=== PATIENT | female | born 1995 ===

== ENCOUNTER 2017-10-17 07:07 | Inpatient (IN) | payer MEDICAID ==
[2017-10-17] MEDS ORDERED: Sodium Chloride 0.9% 1,000 ML IV STA ×2 (07:35→10:46)
--- NOTE | 2017-10-17 07:41 | ED PDOC ---
HPI:Nausea, Vomiting, Diarrhea Time Seen by Provider: 10/17/17 07:16 Chief Complaint (Nursing): Weakness/Neurological Deficit Chief Complaint (Provider): Weakness, Nausea, Vomiting History Per: Patient History/Exam Limitations: no limitations Onset/Duration Of Symptoms: Days (x3) Current Symptoms Are (Timing): Still Present Additional Complaint(s): Jordy Carr is a 21 year old female with a past medical history of Anemia ( unknown cause) and asthma presenting to the ED for an evaluation of generalized weakness, nausea and a few episodes of vomiting occurring for 3 days prior to arrival. The patient denies diarrhea, bloody stools, dark stools, fever, cough, or shortness of breath. PMD: TBD Past Medical History Reviewed: Historical Data, Nursing Documentation, Vital Signs Vital Signs: Last Vital Signs Temp 98.5 F 10/17/17 07:24 Pulse 109 H 10/17/17 07:24 Resp 18 10/17/17 07:24 BP Pulse Ox 98 10/17/17 07:24 - Medical History PMH: Anemia, Asthma - Family History Family History: States: No Known Family Hx - Social History Current smoker - smoking cessation education provided: No Ex-Smoker (has not smoked in the last 12 months): No Alcohol: None Drugs: Cannabis - Immunization History Hx Tetanus Toxoid Vaccination: No Hx Influenza Vaccination: No Hx Pneumococcal Vaccination: No - Home Medications Home Medications: Ambulatory Orders Medication Instructions Recorded Albuterol HFA [Ventolin HFA 90 2 puff IH PRN PRN 03/26/16 mcg/actuation (8 g)] - Allergies Allergies/Adverse Reactions: Allergies Allergy/AdvReac Type Severity Reaction Status Date / Time No Known Allergies Allergy Verified 10/17/17 07:24 Review of Systems ROS Statement: Except As Marked, All Systems Reviewed And Found Negative Constitutional: Negative for: Fever Respiratory: Negative for: Cough, Shortness of Breath Gastrointestinal: Positive for: Nausea, Vomiting. Negative for: Diarrhea, Melena, Hematochezia Neurological: Positive for: Weakness (generalized) Physical Exam - Reviewed Nursing Documentation Reviewed: Yes Vital Signs Reviewed: Yes - Physical Exam Appears: Positive for: Non-toxic, No Acute Distress Head Exam: Positive for: ATRAUMATIC, NORMOCEPHALIC Skin: Positive for: Warm, Dry, Pallor Eye Exam: Positive for: Normal appearance, EOMI ENT: Positive for: Normal ENT Inspection Neck: Positive for: Normal, Painless ROM Cardiovascular/Chest: Positive for: Regular Rate, Rhythm, Chest Non Tender Respiratory: Positive for: Normal Breath Sounds. Negative for: Respiratory Distress Gastrointestinal/Abdominal: Positive for: Normal Exam, Soft. Negative for: Tenderness Back: Positive for: Normal Inspection Extremity: Positive for: Normal ROM. Negative for: Deformity Neurologic/Psych: Positive for: Alert, Oriented (x3). Negative for: Motor/ Sensory Deficits - Laboratory Results Result Diagrams: 10/17/17 07:48 10/17/17 07:48 - ECG O2 Sat by Pulse Oximetry: 98 (RA) Pulse Ox Interpretation: Normal Medical Decision Making Medical Decision Making: Time: 07:16 Impression: Weakness, Nausea, Vomiting Plan: * ED EKG * CMP * CBC (with differential) * NS 1,000 ml IV 200 mls/hr * Reevaluation Scribe Attestation: Documented by January Ramirez, acting as a scribe for Willie Gilliland MD. Provider Scribe Attestation: All medical record entries made by the Scribe were at my direction and personally dictated by me. I have reviewed the chart and agree that the record accurately reflects my personal performance of the history, physical exam, medical decision making, and the department course for this patient. I have also personally directed, reviewed, and agree with the discharge instructions and disposition. Disposition - Clinical Impression Clinical Impression: Pneumonia, Sepsis - Patient ED Disposition Is Patient to be Admitted: Yes - Disposition Disposition Time: 10:42 Condition: FAIR Forms: [employer] (Syriac) - Pt Status Changed To: Hospital Disposition Of: Inpatient - Admit Certification Admit to Inpatient:: After my assessment, the patient will require hospitalization for at least two midnights. This is because of the severity of symptoms shown, intensity of services needed, and/or the medical risk in this patient being treated as an outpatient. - POA Present On Arrival: None
[2017-10-17 07:55] LABS: BASO # 0.1 K/uL (0.0-0.2); BASO % 0.7 % (0.0-2.0); LYMPH # 0.5 K/uL (1.0-4.3); LYMPH % 2.5 % (20.0-40.0); MEAN CELL VOLUME 72.4 fl (81.0-99.0); MEAN CORPUSCULAR HEMOGLOBIN 22.5 pg (27.0-31.0); MEAN PLATELET VOLUME 8.9 fl (7.2-11.7); MONO # 1.4 K/uL (0.0-0.8); MONO % 6.9 % (0.0-10.0); NEUT % 89.9 % (50.0-75.0); PLATELET COUNT 283 K/uL (130-400); RED CELL DISTRIBUTION WIDTH 17.2 % (11.5-14.5)
[2017-10-17 08:16] LABS: VENOUS BLOOD GAS BASE EXCESS 0.4 mmol/L (0.0-2.0); VENOUS BLOOD GAS PCO2 37 mmHg (40-60); VENOUS BLOOD PH 7.43 (7.32-7.43)
[2017-10-17 08:19] LABS: ALB/GLOB RATIO 1.3 (1.0-2.1); ALKALINE PHOSPHATASE 52 U/L (38-126); ALT/SGPT 30 U/L (9-52); AST/SGOT 20 U/L (14-36); BILIRUBIN,TOTAL 1.4 mg/dl (0.2-1.3); BLOOD UREA NITROGEN 12 mg/dl (7-17); CALCIUM 8.9 mg/dL (8.4-10.2); CARBON DIOXIDE 23 mmol/L (22-30); CHLORIDE 104 mmol/L (98-107); GFR AFRICAN-AMERICAN > 60; GLUCOSE,RANDOM 108 mg/dL (65-105); SODIUM 140 mmol/l (132-148)
[2017-10-17 08:22] LABS: POTASSIUM 3.5 MMOL/L (3.6-5.0)
--- NOTE | 2017-10-17 08:41 | CARD ---
APPROVED REPORT EKG Measurement Heart [id number] <Conclusion> Sinus tachycardia Otherwise normal ECG
[2017-10-17] MEDS ORDERED: cefTRIAXone IV 1 gm in Dextros 50 ML IVPB STA (09:43)
[2017-10-17] MEDS ORDERED: cefTRIAXone IV 1 gm in Dextros 50 ML IVPB ONE (10:12)
--- NOTE | 2017-10-17 10:33 | RAD ---
HISTORY: weakness COMPARISON: No prior study available for comparison TECHNIQUE: Chest PA and lateral FINDINGS: LUNGS: Patchy right upper lobe infiltrate consistent with pneumonia. PLEURA: No significant pleural effusion identified. No pneumothorax apparent. CARDIOVASCULAR: Normal. OSSEOUS STRUCTURES: No significant abnormalities. VISUALIZED UPPER ABDOMEN: Normal. OTHER FINDINGS: None. IMPRESSION: Right upper lobe infiltrate.
[2017-10-17 10:38] LABS: NEUTROPHIL 86 % (42-75); TOTAL CELLS COUNTED 100
--- NOTE | 2017-10-17 12:06 | CP.PCM.HP ---
History of Present Illness - History of Present Illness History of Present Illness: CC: Generalized Weakness and Cough History of Present Illness: A 21 year old female with a past medical history of Anemia (unknown cause) and asthma presenting to the ED for an evaluation of generalized weakness, nausea and a few episodes of vomiting occurring for 3 days prior to arrival. The patient denies diarrhea, bloody stools, dark stools, fever or shortness of breath. Present on Admission - Present on Admission Any Indicators Present on Admission: Yes History of DVT/PE: No History of Uncontrolled Diabetes: No Urinary Catheter: No Decubitus Ulcer Present: No Review of Systems - Review of Systems All systems: reviewed and no additional remarkable complaints except - Cardiovascular Cardiovascular: As Per HPI - Respiratory Respiratory: As Per HPI Past Patient History - Infectious Disease Hx of Infectious Diseases: None - Past Medical History & Family History Past Medical History?: Yes Past Family History: Reviewed and not pertinent - Past Social History Smoking Status: Never Smoked Alcohol: None Drugs: Cannabis - CARDIAC Hx Cardiac Disorders: No - PULMONARY Hx Respiratory Disorders: Yes - NEUROLOGICAL Hx Neurological Disorder: No - HEENT Hx HEENT Problems: No - RENAL Hx Chronic Kidney Disease: No - ENDOCRINE/METABOLIC Hx Endocrine Disorders: No - HEMATOLOGICAL/ONCOLOGICAL Hx Blood Disorders: Yes - INTEGUMENTARY Hx Dermatological Problems: No - MUSCULOSKELETAL/RHEUMATOLOGICAL Hx Musculoskeletal Disorders: No - GENITOURINARY/GYNECOLOGICAL Hx Genitourinary Disorders: No - PSYCHIATRIC Hx Psychophysiologic Disorder: No - SURGICAL HISTORY Hx Surgeries: No - ANESTHESIA Hx Anesthesia: No Meds Allergies/Adverse Reactions: Allergies Allergy/AdvReac Type Severity Reaction Status Date / Time No Known Allergies Allergy Verified 10/17/17 07:24 Physical Exam - Constitutional Appears: Well, No Acute Distress - Head Exam Head Exam: ATRAUMATIC, NORMAL INSPECTION, NORMOCEPHALIC - Eye Exam Eye Exam: EOMI, Normal appearance, PERRL Pupil Exam: NORMAL ACCOMODATION, PERRL - ENT Exam ENT Exam: Mucous Membranes Moist, Normal Exam - Neck Exam Neck exam: Positive for: Full Rom, Normal Inspection - Respiratory Exam Respiratory Exam: Clear to Auscultation Bilateral, Rales, NORMAL BREATHING PATTERN - Cardiovascular Exam Cardiovascular Exam: Tachycardia, REGULAR RHYTHM, +S1, +S2 - GI/Abdominal Exam GI & Abdominal Exam: Normal Bowel Sounds, Soft. absent: Tenderness - Extremities Exam Extremities exam: Positive for: full ROM, normal capillary refill, normal inspection - Back Exam Back exam: NORMAL INSPECTION - Neurological Exam Neurological exam: Alert, CN II-XII Intact, Normal Gait, Oriented x3, Reflexes Normal - Psychiatric Exam Psychiatric exam: Normal Affect, Normal Mood - Skin Skin Exam: Dry, Intact, Normal Color, Warm Results - Vital Signs Recent Vital Signs: Last Vital Signs Temp 98.5 F 10/17/17 07:24 Pulse 107 H 10/17/17 11:58 Resp 18 10/17/17 11:58 BP 115/59 L 10/17/17 11:58 Pulse Ox 100 10/17/17 10:53 - Labs Result Diagrams: 10/19/17 06:30 10/19/17 06:30 Labs: Laboratory Results - last 24 hr 10/17/17 10/17/17 10/17/17 07:48 07:48 08:04 WBC 20.0 H RBC 4.69 Hgb 10.5 L Hct 34.0 MCV 72.4 L MCH 22.5 L MCHC 31.0 L RDW 17.2 H Plt Count 283 MPV 8.9 Neut % (Auto) 89.9 H Lymph % (Auto) 2.5 L [place] % (Auto) 6.9 Eos % (Auto) 0.0 Baso % (Auto) 0.7 Neut # 18.0 H Lymph # 0.5 L [place] # 1.4 H Eos # 0.0 Baso # 0.1 Neutrophils % (Manual) 86 H Band Neutrophils % 4 H Lymphocytes % (Manual) 3 L Monocytes % (Manual) 7 Platelet Estimate Normal Hypochromasia (manual) Slight Poikilocytosis (manual Slight Anisocytosis (manual) Moderate Microcytosis (manual) Moderate Ovalocytes Slight pO2 31 VBG pH 7.43 VBG pCO2 37 L VBG HCO3 24.4 VBG Total CO2 25.7 VBG O2 Sat (Calc) 61.7 VBG Base Excess 0.4 VBG Potassium 3.3 L Glucose 115 H Lactate 1.3 FiO2 21.0 Sodium 140 137.0 Potassium 3.5 L Chloride 104 105.0 Carbon Dioxide 23 Anion Gap 17 BUN 12 Creatinine 0.8 Est GFR ( Amer) > 60 Est GFR (Non-Af Amer) > 60 Random Glucose 108 H Calcium 8.9 Total Bilirubin 1.4 H AST 20 ALT 30 Alkaline Phosphatase 52 Total Protein 8.0 Albumin 4.5 Globulin 3.4 Albumin/Globulin Ratio 1.3 Venous Blood Potassium 3.3 L - Imaging and Cardiology Chest x-ray Status: Report reviewed by me Additional comment: IMPRESSION: Right upper lobe infiltrate. Assessment & Plan (1) Sepsis Assessment and Plan: Severe Sepsis Pneumonia Leukocytosis Hypotension-Improving IVF IV Rocephin/Zithromax Blood Cultures Repeat CBC with diff and BMP Status: Acute Priority: High (2) Asthma Status: Chronic Priority: Low
[2017-10-17] MEDS ORDERED: Iohexol 240 (50 ml) PO ONE (12:36)
[2017-10-17] MEDS: Sodium Chloride 0.9% 1,000 ML IV SCH ×7 (13:28→21:30)
[2017-10-17] MEDS ORDERED: Pneumococcal 23-Valent Vaccine IM ONE (14:28)
[2017-10-17] MEDS ORDERED: Iohexol 300 100 ML IJ ONE (14:42)
--- NOTE | 2017-10-17 15:49 | CT ---
PROCEDURE: CT scan abdomen and pelvis dated 10/17/2017 HISTORY: Abdominal pain COMPARISON: None. TECHNIQUE: Contiguous axial images of the abdomen and pelvis performed following oral and intravenous injection of approximately 95 cc Omnipaque 300 contrast material. Coronal and Sagittal reformats generated. This CT exam was performed using one or more of the following dose reduction techniques: Automated exposure control, adjustment of the mA and/or kV according to patient size, and/or use of iterative reconstruction technique. Radiation dose: Total exam DLP = 417.46 mGy-cm. FINDINGS: LOWER THORAX: Minor passive type atelectasis both posterior sulci. . Lung chaney are otherwise clear. No evidence effusion or basilar pneumothorax. Tiny hiatal hernia. Heart size within range of normal. LIVER: Liver is enlarged measuring nearly 20 cm in CC dimension. No obvious hepatic mass collection or calcification. . There appears to be some mild periportal edema. Portal and splenic veins are opacified. GALLBLADDER AND BILE DUCTS: Gallbladder is physiologically distended. No evidence of intraluminal gallbladder calculi. Probable volume averaging of of pericholecystic mesenteric fat. Tiny amount of pericholecystic fluid less likely though not completely excluded. . PANCREAS: Unremarkable. No mass. No ductal dilatation. SPLEEN: Spleen exhibits normal size and attenuation pattern without mass collection or calcification. The the ADRENALS: Unremarkable. KIDNEYS AND URETERS: Unremarkable. No stone or hydronephrosis. BLADDER: The urinary bladder is incompletely distended which may account for slight thick-walled appearance. Correlation with urinalysis suggested. No REPRODUCTIVE: Uterus appears unremarkable. Small left adnexal cyst measuring approximately 19 x 13 mm. There may also be a tiny amount of free fluid in the pelvis. APPENDIX: What is felt to represent a normal but short appendix of best seen on axial image number [id number]. BOWEL: Evaluation of the bowel is somewhat limited due to incomplete opacification. The stomach is incompletely distended which presumably accounts for slight thick-walled appearance. Visualized loops of small bowel exhibit normal contour and caliber. No evidence acute mechanical small bowel obstruction. Stool and air seen throughout the large bowel. No evidence of abnormal mural wall thickening. PERITONEUM: Unremarkable. No fluid collection. No free air. There is a tiny fat containing umbilical hernia. LYMPH NODES: Unremarkable. No enlarged lymph nodes. VASCULATURE: Unremarkable. No aortic aneurysm. BONES: No fracture or destructive lesion. OTHER FINDINGS: None. IMPRESSION: Small left adnexal cyst with questionable small amount of free fluid in the pelvis. . No evidence of cholelithiasis. Suspect minimal periportal edema.
[2017-10-17 16:28] LABS: RBC URINE < 1 /hpf (0-3); URINE BACTERIA RARE (<OCC); URINE BILIRUBIN NEGATIVE (NEGATIVE); URINE BLOOD NEGATIVE (NEGATIVE); URINE COLOR COLORLESS (YELLOW); URINE GLUCOSE (UA) NEG (Normal); URINE KETONE TRACE mg/dL (NEGATIVE); URINE LEUKOCYTE ESTERASE NEG Leu/uL (Negative); URINE PROTEIN NEGATIVE (NEGATIVE); URINE UROBILINOGEN 0.2-1.0 mg/dL (0.2-1.0); WBC URINE 1 /hpf (0-5)
[2017-10-17] MEDS: Albuterol-Ipratrop 3 mg / 0.5 (3 ml) UD INH SCH (19:20)
[2017-10-17] MEDS: Promethazine/Cod 6.25mg-10mg/5ml Syr UD PO PRN (21:11)
[2017-10-18] MEDS: Sodium Chloride 0.9% 1,000 ML IV SCH ×3 (03:00→21:52)
[2017-10-18] MEDS: Promethazine/Cod 6.25mg-10mg/5ml Syr UD PO PRN ×3 (05:21→21:55)
[2017-10-18 07:39] LABS: HEMATOCRIT 27.9 % (34.0-47.0); MEAN CELL VOLUME 73.2 fl (81.0-99.0); MEAN CORPUSCULAR HEMOGLOBIN 22.1 pg (27.0-31.0); MEAN CORPUSCULAR HGB CONC 30.3 g/dL (33.0-37.0); RED CELL DISTRIBUTION WIDTH 17.8 % (11.5-14.5); WHITE BLOOD COUNT 22.9 K/uL (4.8-10.8)
[2017-10-18 07:43] LABS: BLOOD UREA NITROGEN 8 mg/dl (7-17); CALCIUM 7.3 mg/dL (8.4-10.2); CARBON DIOXIDE 24 mmol/L (22-30); CHLORIDE 111 mmol/L (98-107); GFR AFRICAN-AMERICAN > 60; GLUCOSE,RANDOM 78 mg/dL (65-105); POTASSIUM 3.4 MMOL/L (3.6-5.0); SODIUM 142 mmol/l (132-148)
[2017-10-18] MEDS: Albuterol-Ipratrop 3 mg / 0.5 (3 ml) UD INH SCH ×3 (07:49→19:23)
--- NOTE | 2017-10-18 09:10 | CARD ---
APPROVED REPORT EKG Measurement Heart [id number] [place] 154P43 [id number] <Conclusion> Sinus tachycardia Nonspecific ST abnormality Abnormal ECG
[2017-10-18] MEDS: Azithromycin 500 MG in Sodium Chloride 0.9% 250 ML IVPB SCH (09:42)
[2017-10-18] MEDS: Docusate-Senna 50 mg-8.6 mg Tab PO SCH (21:52)
--- NOTE | 2017-10-19 00:44 | CP.PCM.PN ---
Subjective - Date & Time of Evaluation Date of Evaluation: 10/18/17 Time of Evaluation: 18:30 - Subjective Subjective: Seen and examined at the bed side. Continue to complain abdominal pain. CT abdomen/Pelvis shows no acute findings. Deinies fever or chills. +Constipation Objective - Vital Signs/Intake and Output Vital Signs (last 24 hours): Temp Pulse Resp BP Pulse Ox 97.7 F 85 18 100/63 97 10/18/17 23:58 10/18/17 23:58 10/18/17 23:58 10/18/17 23:58 10/18/17 23:58 Intake and Output: 10/18/17 10/19/17 18:59 06:59 Intake Total 3125 Balance 3125 - Medications Medications: Current Medications Acetaminophen (Tylenol 325mg Tab) 650 mg PO Q6 PRN PRN Reason: Headache Last Admin: 10/18/17 13:53 Dose: 650 mg Acetaminophen (Tylenol 325mg Tab) 650 mg PO Q6 PRN PRN Reason: Fever >100.4 F Albuterol/Ipratropium (Duoneb 3 Mg/0.5 Mg (3 Ml) Ud) 3 ml INH RTID [facility] Last Admin: 10/18/17 19:23 Dose: 3 ml Ceftriaxone Sodium 1 gm/ (Sodium Chloride) 100 mls @ 100 mls/hr IVPB DAILY [facility] PRN Reason: Protocol Last Admin: 10/18/17 09:42 Dose: 100 mls/hr Azithromycin 500 mg/ Sodium (Chloride) 250 mls @ 250 mls/hr IVPB DAILY [facility] PRN Reason: Protocol Last Admin: 10/18/17 09:42 Dose: 250 mls/hr Sodium Chloride (Sodium Chloride 0.9%) 1,000 mls @ 125 mls/hr IV .Q8H [facility] Stop: 10/19/17 16:39 Last Admin: 10/18/17 21:52 Dose: 125 mls/hr Ketorolac Tromethamine (Toradol) 15 mg IVP Q6 PRN PRN Reason: Pain, severe (8-10) Last Admin: 10/18/17 16:35 Dose: 15 mg Promethazine HCl/Codeine (Phenergan/Codeine Oral Syrup) 5 ml PO Q6 PRN PRN Reason: Cough Last Admin: 10/18/17 21:55 Dose: 5 ml Senna/Docusate Sodium (Senokot S 50 Mg-8.6 Mg) 2 tab PO HS [facility] Last Admin: 10/18/17 21:52 Dose: 2 tab - Labs Labs: 10/18/17 05:30 10/18/17 05:30 - Constitutional Appears: Well, No Acute Distress - Head Exam Head Exam: ATRAUMATIC, NORMAL INSPECTION, NORMOCEPHALIC - Eye Exam Eye Exam: EOMI, Normal appearance, PERRL Pupil Exam: NORMAL ACCOMODATION, PERRL - ENT Exam ENT Exam: Mucous Membranes Dry, Normal Exam - Neck Exam Neck Exam: Full ROM, Normal Inspection. absent: Lymphadenopathy - Respiratory Exam Respiratory Exam: Decreased Breath Sounds, Clear to Ausculation Bilateral, Rales , NORMAL BREATHING PATTERN - Cardiovascular Exam Cardiovascular Exam: REGULAR RHYTHM, +S1, +S2. absent: Murmur - GI/Abdominal Exam GI & Abdominal Exam: Soft, Normal Bowel Sounds. absent: Tenderness - Extremities Exam Extremities Exam: Full ROM, Normal Capillary Refill, Normal Inspection. absent : Joint Swelling, Pedal Edema - Back Exam Back Exam: Full ROM, NORMAL INSPECTION - Neurological Exam Neurological Exam: Alert, Awake, CN II-XII Intact, Normal Gait, Oriented x3 - Psychiatric Exam Psychiatric exam: Normal Affect, Normal Mood - Skin Skin Exam: Dry, Intact, Normal Color, Warm Assessment and Plan (1) Sepsis Assessment & Plan: Severe Sepsis Pneumonia Leukocytosis Hypotension-Improving IVF IV Rocephin/Zithromax Blood Cultures Repeat CBC with diff and BMP Status: Acute Priority: High (2) Asthma Alb MDI Status: Acute
[2017-10-19] MEDS ORDERED: Bisacodyl 5mg EC Tab PO ONE (01:42)
[2017-10-19] MEDS: Sodium Chloride 0.9% 1,000 ML IV SCH ×2 (01:54→19:53)
[2017-10-19] MEDS: Promethazine/Cod 6.25mg-10mg/5ml Syr UD PO PRN (03:06)
[2017-10-19 07:48] LABS: BASO % 0.3 % (0.0-2.0); EOS # 0.2 K/uL (0.0-0.7); EOS % 2.2 % (0.0-4.0); HEMATOCRIT 27.5 % (34.0-47.0); LYMPH % 11.8 % (20.0-40.0); MEAN CELL VOLUME 72.8 fl (81.0-99.0); MEAN CORPUSCULAR HEMOGLOBIN 22.6 pg (27.0-31.0); MEAN CORPUSCULAR HGB CONC 31.1 g/dL (33.0-37.0); MEAN PLATELET VOLUME 9.6 fl (7.2-11.7); MONO # 0.6 K/uL (0.0-0.8); MONO % 6.6 % (0.0-10.0); NEUT # 6.7 K/uL (1.8-7.0); NEUT % 79.1 % (50.0-75.0); RED CELL DISTRIBUTION WIDTH 18.1 % (11.5-14.5); WHITE BLOOD COUNT 8.5 K/uL (4.8-10.8)
[2017-10-19 08:05] LABS: ALB/GLOB RATIO 0.9 (1.0-2.1); ALKALINE PHOSPHATASE 83 U/L (38-126); ALT/SGPT 365 U/L (9-52); AST/SGOT 516 U/L (14-36); BILIRUBIN,TOTAL 0.8 mg/dl (0.2-1.3); BLOOD UREA NITROGEN 9 mg/dl (7-17); CALCIUM 7.8 mg/dL (8.4-10.2); CARBON DIOXIDE 24 mmol/L (22-30); CHLORIDE 112 mmol/L (98-107); GFR AFRICAN-AMERICAN > 60; GLUCOSE,RANDOM 91 mg/dL (65-105); MAGNESIUM 1.8 MG/DL (1.6-2.3); POTASSIUM 3.5 MMOL/L (3.6-5.0); SODIUM 142 mmol/l (132-148); TOTAL PROTEIN 5.6 G/DL (6.3-8.2)
[2017-10-19] MEDS: Albuterol-Ipratrop 3 mg / 0.5 (3 ml) UD INH SCH ×3 (08:07→19:29)
[2017-10-19] MEDS: Azithromycin 500 MG in Sodium Chloride 0.9% 250 ML IVPB SCH (09:50)
--- NOTE | 2017-10-19 14:13 | CP.PCM.PN ---
Subjective - Date & Time of Evaluation Date of Evaluation: 10/19/17 Time of Evaluation: 14:10 Objective - Vital Signs/Intake and Output Vital Signs (last 24 hours): Temp Pulse Resp BP Pulse Ox 98.3 F 73 20 110/76 98 10/19/17 12:15 10/19/17 13:00 10/19/17 12:15 10/19/17 12:15 10/19/17 12:15 - Medications Medications: Current Medications Acetaminophen (Tylenol 325mg Tab) 650 mg PO Q6 PRN PRN Reason: Headache Last Admin: 10/18/17 13:53 Dose: 650 mg Acetaminophen (Tylenol 325mg Tab) 650 mg PO Q6 PRN PRN Reason: Fever >100.4 F Albuterol/Ipratropium (Duoneb 3 Mg/0.5 Mg (3 Ml) Ud) 3 ml INH RTID [facility] Last Admin: 10/19/17 13:56 Dose: 3 ml Ceftriaxone Sodium 1 gm/ (Sodium Chloride) 100 mls @ 100 mls/hr IVPB DAILY [facility] PRN Reason: Protocol Last Admin: 10/19/17 08:37 Dose: 100 mls/hr Azithromycin 500 mg/ Sodium (Chloride) 250 mls @ 250 mls/hr IVPB DAILY [facility] PRN Reason: Protocol Last Admin: 10/19/17 09:50 Dose: 250 mls/hr Ketorolac Tromethamine (Toradol) 15 mg IVP Q6 PRN PRN Reason: Pain, severe (8-10) Last Admin: 10/19/17 03:09 Dose: 15 mg Pantoprazole Sodium (Protonix Inj) 40 mg IVP DAILY [facility] Promethazine HCl/Codeine (Phenergan/Codeine Oral Syrup) 5 ml PO Q6 PRN PRN Reason: Cough Last Admin: 10/19/17 03:06 Dose: 5 ml Senna/Docusate Sodium (Senokot S 50 Mg-8.6 Mg) 2 tab PO HS [facility] Last Admin: 10/18/17 21:52 Dose: 2 tab Sucralfate (Carafate Oral Susp) 1 gm PO QID [facility] - Labs Labs: 10/19/17 06:30 10/19/17 06:30 Assessment and Plan (1) Sepsis Assessment & Plan: Severe Sepsis Pneumonia Leukocytosis Hypotension-Improving IVF IV Rocephin/Zithromax Blood Cultures Repeat CBC with diff and BMP Status: Acute Priority: High (2) Asthma Alb MDI Status: Chronic
[2017-10-19] MEDS: Sucralfate 1 gm/10 ml Oral Susp UD PO SCH ×4 (15:24→21:56)
[2017-10-19] MEDS: Docusate-Senna 50 mg-8.6 mg Tab PO SCH (21:56)
[2017-10-20] MEDS: Promethazine/Cod 6.25mg-10mg/5ml Syr UD PO PRN (03:15)
[2017-10-20] MEDS: Albuterol-Ipratrop 3 mg / 0.5 (3 ml) UD INH SCH ×3 (07:28→19:26)
--- NOTE | 2017-10-20 10:37 | RAD ---
HISTORY: fu pna COMPARISON: Chest radiographs 10/17/2017. TECHNIQUE: Chest PA and lateral FINDINGS: LUNGS: Interval patchy infiltrate is increased at the right upper lobe with remaining lung chaney clear. PLEURA: No significant pleural effusion identified. No pneumothorax apparent. CARDIOVASCULAR: Normal. OSSEOUS STRUCTURES: No significant abnormalities. VISUALIZED UPPER ABDOMEN: Normal. OTHER FINDINGS: None. IMPRESSION: Mild increase in patchy infiltrate right upper lobe. Continued clinical and radiographic monitor advised.
[2017-10-20 10:57] LABS: BILIRUBIN,TOTAL 2.2 mg/dl (0.2-1.3); TOTAL PROTEIN 6.4 G/DL (6.3-8.2)
[2017-10-20 11:46] LABS: IRON 89 ug/dL (37-170)
[2017-10-20] MEDS: Sucralfate 1 gm/10 ml Oral Susp UD PO SCH ×4 (13:26→21:09)
[2017-10-20] MEDS: Azithromycin 500 MG in Sodium Chloride 0.9% 250 ML IVPB SCH (13:35)
--- NOTE | 2017-10-20 15:04 | US ---
HISTORY: Elevated d LFT COMPARISON: None. TECHNIQUE: Sonographic evaluation of the right upper quadrant of the abdomen. FINDINGS: LIVER: Liver is upper limits of normal spleen size measuring nearly 18 cm in CC dimension. Liver demonstrates smooth contour and normal echotexture. No obvious hepatic mass or collection seen on images presented. Portal vein demonstrates hepatopetal flow GALLBLADDER: Gallbladder is physiologically distended. Gallbladder wall is thickened at approximately 4.4 mm which may be due to incomplete distention however inflammatory process not to be considered. There is also a small amount of pericholecystic fluid -ascites. No definitive intraluminal gallbladder calculi. COMMON BILE DUCT: CBD measures approximately 4.8 mm. No stones. No dilatation. PANCREAS: Unremarkable as visualized. No mass. No ductal dilatation. RIGHT KIDNEY: Right kidney measures approximate 12.2 x 6.5 x 4.7 cm in length. Normal echogenicity. No calculus, mass, or hydronephrosis. AORTA: No aneurysmal dilatation. IVC: Unremarkable. OTHER FINDINGS: Note made of a small right-sided pleural effusion IMPRESSION: Mild gallbladder wall thickening with small amount of pericholecystic fluid -ascites however no intraluminal gallbladder calculi identified. . Small pleural effusion. Liver is upper limits of normal in size.
[2017-10-20 17:23] LABS: FOLATE 12.6 ng/mL
[2017-10-20] MEDS: Docusate-Senna 50 mg-8.6 mg Tab PO SCH (21:09)
--- NOTE | 2017-10-21 01:09 | CP.PCM.PN ---
Subjective - Date & Time of Evaluation Date of Evaluation: 10/20/17 Time of Evaluation: 16:00 Objective - Vital Signs/Intake and Output Vital Signs (last 24 hours): Temp Pulse Resp BP Pulse Ox 97.9 F 66 18 112/75 97 10/20/17 23:39 10/20/17 23:39 10/20/17 23:39 10/20/17 23:39 10/20/17 23:39 Intake and Output: 10/20/17 10/21/17 18:59 06:59 Intake Total 1350 Balance 1350 - Medications Medications: Current Medications Acetaminophen (Tylenol 325mg Tab) 650 mg PO Q6 PRN PRN Reason: Headache Last Admin: 10/19/17 15:23 Dose: 650 mg Acetaminophen (Tylenol 325mg Tab) 650 mg PO Q6 PRN PRN Reason: Fever >100.4 F Albuterol/Ipratropium (Duoneb 3 Mg/0.5 Mg (3 Ml) Ud) 3 ml INH RTID [facility] Last Admin: 10/20/17 19:26 Dose: 3 ml Ceftriaxone Sodium 1 gm/ (Sodium Chloride) 100 mls @ 100 mls/hr IVPB DAILY [facility] PRN Reason: Protocol Last Admin: 10/20/17 13:34 Dose: 100 mls/hr Azithromycin 500 mg/ Sodium (Chloride) 250 mls @ 250 mls/hr IVPB DAILY [facility] PRN Reason: Protocol Last Admin: 10/20/17 13:35 Dose: 250 mls/hr Ketorolac Tromethamine (Toradol) 15 mg IVP Q6 PRN PRN Reason: Pain, severe (8-10) Last Admin: 10/20/17 22:04 Dose: 15 mg Ondansetron HCl (Zofran Inj) 4 mg IVP Q6 PRN PRN Reason: Nausea/Vomiting Last Admin: 10/20/17 03:15 Dose: 4 mg Pantoprazole Sodium (Protonix Inj) 40 mg IVP DAILY [facility] Last Admin: 10/20/17 10:55 Dose: 40 mg Promethazine HCl/Codeine (Phenergan/Codeine Oral Syrup) 5 ml PO Q6 PRN PRN Reason: Cough Last Admin: 10/20/17 03:15 Dose: 5 ml Senna/Docusate Sodium (Senokot S 50 Mg-8.6 Mg) 2 tab PO [facility] Last Admin: 10/20/17 21:09 Dose: 2 tab Sucralfate (Carafate Oral Susp) 1 gm PO QID [facility] Last Admin: 10/20/17 21:09 Dose: 1 gm - Labs Labs: 10/19/17 06:30 10/19/17 06:30 Assessment and Plan (1) Sepsis Status: Chronic
[2017-10-21 05:47] LABS: ALKALINE PHOSPHATASE 113 U/L (38-126); ALT/SGPT 259 U/L (9-52); AST/SGOT 97 U/L (14-36); BILIRUBIN,TOTAL 1.2 mg/dl (0.2-1.3); BLOOD UREA NITROGEN 7 mg/dl (7-17); CALCIUM 8.3 mg/dL (8.4-10.2); CARBON DIOXIDE 25 mmol/L (22-30); CHLORIDE 110 mmol/L (98-107); GFR AFRICAN-AMERICAN > 60; GLUCOSE,RANDOM 73 mg/dL (65-105); POTASSIUM 3.4 MMOL/L (3.6-5.0); SODIUM 142 mmol/l (132-148); TOTAL PROTEIN 6.3 G/DL (6.3-8.2)
[2017-10-21] MEDS: Albuterol-Ipratrop 3 mg / 0.5 (3 ml) UD INH SCH ×2 (07:51→13:30)
[2017-10-21] MEDS ORDERED: Sodium Chloride 3% for Inhalation 4 ML VIAL.NEB IH PRN (09:45)
[2017-10-21] MEDS ORDERED: Potassium Chloride 20 mEq/15 ml LIQ UD PO STA (09:48)
--- NOTE | 2017-10-21 10:11 | CP.PCM.CON ---
History of Present Illness - History of Present Illness History of Present Illness: 21 yo female presented with nausea and vomiting and infiltrates on CXR Found to have increased LFT's HIDA in progress PMH asthma, anemia Review of Systems - Review of Systems All systems: reviewed and no additional remarkable complaints except - Constitutional Constitutional: As Per HPI - EENT Eyes: absent: As Per HPI, Blind Spots, Blurred Vision, Change in Vision, Decreased Night Vision, Diplopia, Discharge, Dry Eye, Exophthalmos, Floaters, Irritation, Itchy Eyes, Loss of Peripheral Vision, Pain, Photophobia, Requires Corrective Lenses, Sees Flashes, Spots in Vision, Tunnel Vision, Other Visual Disturbances, Loss of Vision, Other Ears: absent: As Per HPI, Decreased Hearing, Ear Discharge, Ear Pain, Tinnitus, Abnormal Hearing, Disequilibrium, Dizziness, Other Nose/Mouth/Throat: absent: As Per HPI, Epistaxis, Nasal Congestion, Nasal Discharge, Nasal Obstruction, Nasal Trauma, Nose Pain, Post Nasal Drip, Sinus Pain, Sinus Pressure, Bleeding Gums, Change in Voice, Dental Pain, Dry Mouth, Dysphagia, Halitosis, Hoarsness, Lip Swelling, Mouth Lesions, Mouth Pain, Odynophagia, Sore Throat, Throat Swelling, Tongue Swelling, Facial Pain, Neck Pain, Neck Mass, Other - Breasts Breasts: absent: As Per HPI, Change in Shape, Mass, Pain, Nipple Discharge, Nipple Inversion, Skin Changes, Swelling, Other - Cardiovascular Cardiovascular: absent: As Per HPI, Acrocyanosis, Chest Pain, Chest Pain at Rest , Chest Pain with Activity, Claudication, Diaphoresis, Dyspnea, Dyspnea on Exertion, Edema, Irregular Heart Rhythm, Pain Radiating to Arm/Neck/Jaw, Leg Edema, Leg Ulcers, Lightheadedness, Orthopnea, Palpitations, Paroxysmal Nocturnal Dyspnea, Pedal Edema, Radiating Pain, Rapid Heart Rate, Slow Heart Rate, Syncope, Other - Respiratory Respiratory: As Per HPI - Gastrointestinal Gastrointestinal: As Per HPI - Genitourinary Genitourinary: absent: As Per HPI, Change in Urinary Stream, Difficulty Urinating, Dysuria, Flank Pain, Hematuria, Pyuria, Nocturia, Urinary Incontinence, Urinary Frequency, Urinary Hesitance, Urinary Urgency, Voiding Freq/Small Amts, Freq UTI, Hx Renal/Bladder Calculi, Hx /Renal Surgery, Bladder Distension, Other - Reproductive: Female Reproductive:Female: absent: As Per HPI, Amenorrhea, Amenorrhea/ Control, Currently Menstual, Cycle <21 Days, Cycle >35 Days, Cycle Variable, Menses 1-7 Days, Menses >/= 8 Days, Menses Variable, Cycle > 4 Weeks Between, No Menses for 6 Months, Heavy Menses, Light Menses, Normal Menses, Spotting Between Cycles , S/P Hysterectomy, Menopausal, Post Menopausal, Premenarche, Abnormal Vaginal Bleeding, Dysmenorrhea, Dyspareunia, Genital Lesions, Genital Pruritis, Pelvic Pain, Prolapse Symptoms, Sexual Dysfunction, Vaginal Discharge, Vaginal Dryness , Vaginal Odor, Vaginal Pruritis, Other - Menstruation Menstruation: absent: As Per HPI, Amenorrhea, Amenorrhea/ Control, Currently Menstual, Cycle <21 Days, Cycle >35 Days, Cycle Variable, Menses 1-7 Days, Menses >/= 8 Days, Menses Variable, Cycle > 4 Weeks Between, No Menses for 6 Months, Heavy Menses, Light Menses, Normal Menses, Spotting Between Cycles , S/P Hysterectomy, Menopausal, Post Menopausal, Premenarche, Abnormal Vaginal Bleeding, Dysmenorrhea, Other - Musculoskeletal Musculoskeletal: absent: As Per HPI, Abnormal Gait, Arthralgias, Atrophy, Back Pain, Deformity, Joint Swelling, Limited Range of Motion, Loss of Height, Muscle Cramps, Muscle Weakness, Myalgias, Neck Pain, Numbness, Radiating Pain into Limb, Stiffness, Tingling, Other - Integumentary Integumentary: absent: As Per HPI, Acne, Alopecia, Bleeding Lesions, Change in Hair, Change in Nails, Change in Pigmentation, Changing Lesions, Dry Skin, Erythema, Furuncle, Hirsutism, Lesions, New Lesions, Non-Healing Lesions, Photosensitivity, Pruritus, Rash, Skin Pain, Skin Ulcer, Sores, Striae, Swelling , Unusual Bruising, Wounds, Jaundice, Other - Neurological Neurological: absent: As Per HPI, Abnormal Gait, Abnormal Hearing, Abnormal Movements, Abnormal Speech, Behavioral Changes, Burning Sensations, Confusion, Convulsions, Disequilibrium, Dizziness, Numbness, Focal Weakness, Frequent Falls , Headaches, Lack of Coordination, Loss of Vision, Memory Loss, Paresthesias, Radicular Pain, Restless Legs, Sensory Deficit, Syncope, Tingling, Tremor, Vertigo, Weakness, Other Visual Disturbances, Other - Psychiatric Psychiatric: absent: As Per HPI, Abnormal Sleep Pattern, Anhedonia, Anxiety, Auditory Hallucinations, Behavioral Changes, Change in Appetite, Change in Libido, Confusion, Depression, Difficulty Concentrating, Hallucinations, Homicidal Ideation, Hopelessness, Irritability, Memory Loss, Mood Swings, Panic Attacks, Paranoia, Suicidal Ideation, Visual Hallucinations, Tactile Hallucinations, Other - Endocrine Endocrine: absent: As Per HPI, Change in Body Appearance, Change in Libido, Cold Intolorance, Deepening of Voice, Excessive Sweating, Fatigue, Flushing, Heat Intolorance, Increase in Ring/Shoe/Hat Size, Palpitations, Polydipsia, Polyphagia, Polyuria, Other - Hematologic/Lymphatic Hematologic: absent: As Per HPI, Easy Bleeding, Easy Bruising, Lymphadenopathy, Other Past Patient History - Infectious Disease Hx of Infectious Diseases: None - Past Medical History & Family History Past Medical History?: Yes Past Family History: Reviewed and not pertinent - Past Social History Smoking Status: Never Smoked Alcohol: None Drugs: Cannabis - CARDIAC Hx Cardiac Disorders: No - PULMONARY Hx Respiratory Disorders: Yes - NEUROLOGICAL Hx Neurological Disorder: No - HEENT Hx HEENT Problems: No - RENAL Hx Chronic Kidney Disease: No - ENDOCRINE/METABOLIC Hx Endocrine Disorders: No - HEMATOLOGICAL/ONCOLOGICAL Hx Blood Disorders: Yes - INTEGUMENTARY Hx Dermatological Problems: No - MUSCULOSKELETAL/RHEUMATOLOGICAL Hx Musculoskeletal Disorders: No - GASTROINTESTINAL Hx Gastrointestinal Disorders: No - GENITOURINARY/GYNECOLOGICAL Hx Genitourinary Disorders: No - PSYCHIATRIC Hx Psychophysiologic Disorder: No - SURGICAL HISTORY Hx Surgeries: No - ANESTHESIA Hx Anesthesia: No Meds Allergies/Adverse Reactions: Allergies Allergy/AdvReac Type Severity Reaction Status Date / Time No Known Allergies Allergy Verified 10/17/17 07:24 - Medications Medications: Current Medications Acetaminophen (Tylenol 325mg Tab) 650 mg PO Q6 PRN PRN Reason: Headache Last Admin: 10/19/17 15:23 Dose: 650 mg Acetaminophen (Tylenol 325mg Tab) 650 mg PO Q6 PRN PRN Reason: Fever >100.4 F Albuterol/Ipratropium (Duoneb 3 Mg/0.5 Mg (3 Ml) Ud) 3 ml INH RTID [facility] Last Admin: 10/21/17 07:51 Dose: 3 ml Ceftriaxone Sodium 1 gm/ (Sodium Chloride) 100 mls @ 100 mls/hr IVPB DAILY [facility] PRN Reason: Protocol Last Admin: 10/20/17 13:34 Dose: 100 mls/hr Azithromycin 500 mg/ Sodium (Chloride) 250 mls @ 250 mls/hr IVPB DAILY [facility] PRN Reason: Protocol Last Admin: 10/20/17 13:35 Dose: 250 mls/hr Ketorolac Tromethamine (Toradol) 15 mg IVP Q6 PRN PRN Reason: Pain, severe (8-10) Last Admin: 10/21/17 03:56 Dose: 15 mg Ondansetron HCl (Zofran Inj) 4 mg IVP Q6 PRN PRN Reason: Nausea/Vomiting Last Admin: 10/20/17 03:15 Dose: 4 mg Pantoprazole Sodium (Protonix Inj) 40 mg IVP DAILY [facility] Last Admin: 10/20/17 10:55 Dose: 40 mg Promethazine HCl/Codeine (Phenergan/Codeine Oral Syrup) 5 ml PO Q6 PRN PRN Reason: Cough Last Admin: 10/20/17 03:15 Dose: 5 ml Senna/Docusate Sodium (Senokot S 50 Mg-8.6 Mg) 2 tab PO HS [facility] Last Admin: 10/20/17 21:09 Dose: 2 tab Sucralfate (Carafate Oral Susp) 1 gm PO QID [facility] Last Admin: 10/20/17 21:09 Dose: 1 gm Physical Exam - Constitutional Appears: Non-toxic, Chronically Ill - Head Exam Head Exam: NORMOCEPHALIC - Eye Exam Eye Exam: PERRL. absent: Scleral icterus - ENT Exam ENT Exam: Mucous Membranes Dry - Neck Exam Neck exam: Negative for: Lymphadenopathy - Respiratory Exam Respiratory Exam: Decreased Breath Sounds, Clear to Auscultation Bilateral - Cardiovascular Exam Cardiovascular Exam: REGULAR RHYTHM, +S1, +S2 - GI/Abdominal Exam GI & Abdominal Exam: Diminished Bowel Sounds, Soft. absent: Tenderness - Rectal Exam Rectal Exam: Deferred - Exam Exam: NORMAL INSPECTION - Extremities Exam Extremities exam: Positive for: pedal pulses present. Negative for: calf tenderness, pedal edema, tenderness - Back Exam Back exam: absent: CVA tenderness (L), CVA tenderness (R) - Neurological Exam Neurological exam: Alert, CN II-XII Intact, Oriented x3, Reflexes Normal - Psychiatric Exam Psychiatric exam: Normal Mood - Skin Skin Exam: Dry Results - Vital Signs Recent Vital Signs: Last Vital Signs Temp 98.2 F 10/21/17 08:05 Pulse 59 L 10/21/17 08:05 Resp 18 10/21/17 08:05 BP 120/80 10/21/17 08:05 Pulse Ox 95 10/21/17 08:05 - Labs Result Diagrams: 10/19/17 06:30 10/21/17 04:20 Labs: Laboratory Results - last 24 hr 10/20/17 10/20/17 10/20/17 10:00 11:26 16:51 Retic Count Sodium Potassium Chloride Carbon Dioxide Anion Gap BUN Creatinine Est GFR ( Amer) Est GFR (Non-Af Amer) Random Glucose Calcium Iron 89 TIBC 366 % Saturation 24 Ferritin 26.2 Total Bilirubin 2.2 H Direct Bilirubin 1.0 H AST 220 H D ALT 373 H Alkaline Phosphatase 117 Total Protein 6.4 Albumin 3.3 L D Globulin 3.1 Albumin/Globulin Ratio 1.0 Vitamin B12 773 Folate 12.6 Hepatitis A IgM Ab Negative Hep Bs Antigen Negative Hep B Core IgM Ab Negative Hepatitis C Antibody Negative 10/21/17 10/21/17 04:20 04:20 Retic Count 1.3 Sodium 142 Potassium 3.4 L Chloride 110 H Carbon Dioxide 25 Anion Gap 10 BUN 7 Creatinine 0.5 L Est GFR ( Amer) > 60 Est GFR (Non-Af Amer) > 60 Random Glucose 73 Calcium 8.3 L Iron TIBC % Saturation Ferritin Total Bilirubin 1.2 Direct Bilirubin AST 97 H D ALT 259 H D Alkaline Phosphatase 113 Total Protein 6.3 Albumin 3.1 L Globulin 3.1 Albumin/Globulin Ratio 1.0 Vitamin B12 Folate Hepatitis A IgM Ab Hep Bs Antigen Hep B Core IgM Ab Hepatitis C Antibody Assessment & Plan (1) Pneumonia Status: Acute (2) Sepsis Status: Chronic Priority: High (3) Exacerbation of asthma Status: Acute - Assessment and Plan (Free Text) Assessment: Await HIDA Blood cuultures neg thus far consider adding Zosyn and removing Rocephin [neumonia could be viral, atypical, Legionella , aspiration type as well as bacterial
[2017-10-21] MEDS: Sucralfate 1 gm/10 ml Oral Susp UD PO SCH ×3 (13:05→16:39)
[2017-10-21] MEDS: Azithromycin 500 MG in Sodium Chloride 0.9% 250 ML IVPB SCH (13:22)
--- NOTE | 2017-10-21 13:57 | NM ---
PROCEDURE: Nuclear Medicine Hepatobiliary Scan HISTORY: Abdominal Pain, elevated Liver Enzymes COMPARISON: None available. TECHNIQUE: 5.0 mCi of technetium 99m Mebrofenin was administered intravenously. Planar images of the abdomen were obtained at 5 min intervals to 60 mins. Delayed images were also obtained. FINDINGS: LIVER: Timely and homogenous uptake. COMMON BILE DUCT: identified at 10 mins. GALLBLADDER: identified at 10 mins. SMALL BOWEL: Identified at 5-10 mins. IMPRESSION: Normal Hepatobiliary Scan. The cystic duct is patent. No nuclear evidence of common bile duct obstruction.
[2017-10-21 15:43] VITALS: BP 112/69; PULSE 69; RESP 20; TEMP 98.3; O2SAT 96
--- NOTE | 2017-10-21 15:54 | CP.PCM.CON ---
History of Present Illness - History of Present Illness History of Present Illness: General surgery consult note for Dr. Silvino Olivares, PGY-1 Pt S & E at bedside. 21F w/PMH sig for asthma consulted for abdominal pain x 5 days. Pt reports sudden onset of epigastric abdominal pain, constant, non radiating, severe, but variable in intensity -worsened by eating, but not associated with fatty or spicy food intake. Admits to emesis x 1 on 10/16/12, nauseas, fevers, chills and constipation. Admitted to hospital for pneumonia, admits to cough. Denies diarrhea, sick contacts, ever having before. PMH: Asthma PSH: Denies All: NKDA SH: Denies ETOH or tobacco use, rare MJ use PMD: Denies Review of Systems - Review of Systems All systems: reviewed and no additional remarkable complaints except - Constitutional Constitutional: Chills, Fever - Cardiovascular Cardiovascular: Chest Pain - Respiratory Respiratory: Cough - Gastrointestinal Gastrointestinal: Abdominal Pain, Change in Bowel Habits, Constipation, Nausea, Vomiting. absent: Diarrhea, Hematemesis - Reproductive: Female Reproductive:Female: absent: Abnormal Vaginal Bleeding, Vaginal Discharge - Musculoskeletal Musculoskeletal: absent: Back Pain - Integumentary Integumentary: absent: Rash - Psychiatric Psychiatric: Change in Appetite Past Patient History - Infectious Disease Hx of Infectious Diseases: None - Past Medical History & Family History Past Medical History?: Yes Past Family History: Reviewed and not pertinent - Past Social History Smoking Status: Never Smoked Alcohol: None Drugs: Cannabis - CARDIAC Hx Cardiac Disorders: No - PULMONARY Hx Respiratory Disorders: Yes - NEUROLOGICAL Hx Neurological Disorder: No - HEENT Hx HEENT Problems: No - RENAL Hx Chronic Kidney Disease: No - ENDOCRINE/METABOLIC Hx Endocrine Disorders: No - HEMATOLOGICAL/ONCOLOGICAL Hx Blood Disorders: Yes - INTEGUMENTARY Hx Dermatological Problems: No - MUSCULOSKELETAL/RHEUMATOLOGICAL Hx Musculoskeletal Disorders: No - GASTROINTESTINAL Hx Gastrointestinal Disorders: No - GENITOURINARY/GYNECOLOGICAL Hx Genitourinary Disorders: No - PSYCHIATRIC Hx Psychophysiologic Disorder: No - SURGICAL HISTORY Hx Surgeries: No - ANESTHESIA Hx Anesthesia: No Meds Allergies/Adverse Reactions: Allergies Allergy/AdvReac Type Severity Reaction Status Date / Time No Known Allergies Allergy Verified 10/17/17 07:24 - Medications Medications: Current Medications Acetaminophen (Tylenol 325mg Tab) 650 mg PO Q6 PRN PRN Reason: Headache Last Admin: 10/19/17 15:23 Dose: 650 mg Acetaminophen (Tylenol 325mg Tab) 650 mg PO Q6 PRN PRN Reason: Fever >100.4 F Albuterol/Ipratropium (Duoneb 3 Mg/0.5 Mg (3 Ml) Ud) 3 ml INH RTID [facility] Last Admin: 10/21/17 13:30 Dose: 3 ml Ceftriaxone Sodium 1 gm/ (Sodium Chloride) 100 mls @ 100 mls/hr IVPB DAILY [facility] PRN Reason: Protocol Last Admin: 10/21/17 13:23 Dose: 100 mls/hr Azithromycin 500 mg/ Sodium (Chloride) 250 mls @ 250 mls/hr IVPB DAILY [facility] PRN Reason: Protocol Last Admin: 10/21/17 13:22 Dose: 250 mls/hr Ketorolac Tromethamine (Toradol) 15 mg IVP Q6 PRN PRN Reason: Pain, severe (8-10) Last Admin: 10/21/17 13:29 Dose: 15 mg Ondansetron HCl (Zofran Inj) 4 mg IVP Q6 PRN PRN Reason: Nausea/Vomiting Last Admin: 10/20/17 03:15 Dose: 4 mg Pantoprazole Sodium (Protonix Inj) 40 mg IVP DAILY [facility] Last Admin: 10/20/17 10:55 Dose: 40 mg Promethazine HCl/Codeine (Phenergan/Codeine Oral Syrup) 5 ml PO Q6 PRN PRN Reason: Cough Last Admin: 10/20/17 03:15 Dose: 5 ml Senna/Docusate Sodium (Senokot S 50 Mg-8.6 Mg) 2 tab PO HS [facility] Last Admin: 10/20/17 21:09 Dose: 2 tab Sucralfate (Carafate Oral Susp) 1 gm PO QID [facility] Last Admin: 10/21/17 13:18 Dose: 1 gm Physical Exam - Constitutional Appears: Non-toxic, No Acute Distress - Head Exam Head Exam: ATRAUMATIC, NORMAL INSPECTION, NORMOCEPHALIC - Eye Exam Eye Exam: EOMI, Normal appearance - ENT Exam ENT Exam: Mucous Membranes Moist, Normal Exam - Neck Exam Neck exam: Positive for: Full Rom, Normal Inspection - Respiratory Exam Respiratory Exam: Clear to Auscultation Bilateral, NORMAL BREATHING PATTERN - Cardiovascular Exam Cardiovascular Exam: REGULAR RHYTHM, +S1, +S2 - GI/Abdominal Exam GI & Abdominal Exam: Normal Bowel Sounds, Soft, Tenderness (Mild, epigastric). absent: Distended, Firm, Guarding, Hernia, Rebound, Rigid - Extremities Exam Extremities exam: Negative for: pedal edema - Neurological Exam Neurological exam: Alert, CN II-XII Intact, Oriented x3 - Psychiatric Exam Psychiatric exam: Normal Affect, Normal Mood - Skin Skin Exam: Dry, Intact, Normal Color, Warm Results - Vital Signs Recent Vital Signs: Last Vital Signs Temp 98.3 F 10/21/17 15:42 Pulse 69 10/21/17 15:42 Resp 20 10/21/17 15:42 BP 112/69 10/21/17 15:42 Pulse Ox 96 10/21/17 15:42 - Labs Result Diagrams: 10/19/17 06:30 10/21/17 04:20 Labs: Laboratory Results - last 24 hr 10/20/17 10/20/17 10/21/17 10:00 16:51 04:20 Retic Count 1.3 Sodium Potassium Chloride Carbon Dioxide Anion Gap BUN Creatinine Est GFR ( Amer) Est GFR (Non-Af Amer) Random Glucose Calcium Total Bilirubin AST ALT Alkaline Phosphatase Total Protein Albumin Globulin Albumin/Globulin Ratio Folate 12.6 Hepatitis A IgM Ab Negative Hep Bs Antigen Negative Hep B Core IgM Ab Negative Hepatitis C Antibody Negative 10/21/17 04:20 Retic Count Sodium 142 Potassium 3.4 L Chloride 110 H Carbon Dioxide 25 Anion Gap 10 BUN 7 Creatinine 0.5 L Est GFR ( Amer) > 60 Est GFR (Non-Af Amer) > 60 Random Glucose 73 Calcium 8.3 L Total Bilirubin 1.2 AST 97 H D ALT 259 H D Alkaline Phosphatase 113 Total Protein 6.3 Albumin 3.1 L Globulin 3.1 Albumin/Globulin Ratio 1.0 Folate Hepatitis A IgM Ab Hep Bs Antigen Hep B Core IgM Ab Hepatitis C Antibody Assessment & Plan - Assessment and Plan (Free Text) Assessment: 21F admitted for pneumonia with abdominal pain, negative HIDA scan with minimal findings on ab U/S - unlikely acute cholecystitis, possibly related to pneumonia Plan: LFTs down trending Negative HIDA No surgical intervention at this time DW attending Elise, PGY-1 - Date & Time Date: 10/21/17 Time: 16:07
--- NOTE | 2017-10-21 17:50 | CP.PCM.DIS ---
Provider - Provider Date of Admission: 10/17/17 10:44 Attending physician: Amanda Linares MD Time Spent in preparation of Discharge (in minutes): 35 Diagnosis - Discharge Diagnosis (1) Sepsis Status: Acute Priority: High Hospital Course - Lab Results Lab Results: Micro Results 10/17/17 08:08 Blood-Venous Blood Culture - Preliminary NO GROWTH AFTER 4 DAYS 10/17/17 18:03 Urine,Clean Catch Urine Culture - Final No Growth (<1,000 CFU/ML) Most Recent Lab Values WBC 8.5 K/uL (4.8-10.8) D 10/19/17 06:30 RBC 3.78 Mil/uL (3.80-5.20) L 10/19/17 06:30 Hgb 8.6 g/dL (12.0-16.0) L 10/19/17 06:30 Hct 27.5 % (34.0-47.0) L 10/19/17 06:30 MCV 72.8 fl (81.0-99.0) L 10/19/17 06:30 MCH 22.6 pg (27.0-31.0) L 10/19/17 06:30 MCHC 31.1 g/dL (33.0-37.0) L 10/19/17 06:30 RDW 18.1 % (11.5-14.5) H 10/19/17 06:30 Plt Count 194 K/uL (130-400) 10/19/17 06:30 MPV 9.6 fl (7.2-11.7) 10/19/17 06:30 Neut % (Auto) 79.1 % (50.0-75.0) H 10/19/17 06:30 Lymph % (Auto) 11.8 % (20.0-40.0) L 10/19/17 06:30 [place] % (Auto) 6.6 % (0.0-10.0) 10/19/17 06:30 Eos % (Auto) 2.2 % (0.0-4.0) 10/19/17 06:30 Baso % (Auto) 0.3 % (0.0-2.0) 10/19/17 06:30 Neut # 6.7 K/uL (1.8-7.0) 10/19/17 06:30 Lymph # 1.0 K/uL (1.0-4.3) 10/19/17 06:30 [place] # 0.6 K/uL (0.0-0.8) 10/19/17 06:30 Eos # 0.2 K/uL (0.0-0.7) 10/19/17 06:30 Baso # 0.0 K/uL (0.0-0.2) 10/19/17 06:30 Neutrophils % (Manual) 86 % (42-75) H 10/17/17 07:48 Band Neutrophils % 4 % (0-2) H 10/17/17 07:48 Lymphocytes % (Manual) 3 % (20-50) L 10/17/17 07:48 Monocytes % (Manual) 7 % (0-10) 10/17/17 07:48 Platelet Estimate Normal (NORMAL) 10/17/17 07:48 Hypochromasia (manual) Slight 10/17/17 07:48 Poikilocytosis (manual Slight 10/17/17 07:48 Anisocytosis (manual) Moderate 10/17/17 07:48 Microcytosis (manual) Moderate 10/17/17 07:48 Ovalocytes Slight 10/17/17 07:48 Retic Count 1.3 % (0.5-1.5) 10/21/17 04:20 pO2 31 mm/Hg (30-55) 10/17/17 08:04 VBG pH 7.43 (7.32-7.43) 10/17/17 08:04 VBG pCO2 37 mmHg (40-60) L 10/17/17 08:04 VBG HCO3 24.4 mmol/L 10/17/17 08:04 VBG Total CO2 25.7 mmol/L (22-28) 10/17/17 08:04 VBG O2 Sat (Calc) 61.7 % (40-65) 10/17/17 08:04 VBG Base Excess 0.4 mmol/L (0.0-2.0) 10/17/17 08:04 VBG Potassium 3.3 mmol/L (3.6-5.2) L 10/17/17 08:04 Sodium 137.0 mmol/L (132-148) 10/17/17 08:04 Chloride 105.0 mmol/L (98-107) 10/17/17 08:04 Glucose 115 mg/dL (65-105) H 10/17/17 08:04 Lactate 1.3 mmol/L (0.7-2.1) 10/17/17 08:04 FiO2 21.0 % 10/17/17 08:04 Sodium 142 mmol/l (132-148) 10/21/17 04:20 Potassium 3.4 MMOL/L (3.6-5.0) L 10/21/17 04:20 Chloride 110 mmol/L (98-107) H 10/21/17 04:20 Carbon Dioxide 25 mmol/L (22-30) 10/21/17 04:20 Anion Gap 10 (10-20) 10/21/17 04:20 BUN 7 mg/dl (7-17) 10/21/17 04:20 Creatinine 0.5 mg/dl (0.7-1.2) L 10/21/17 04:20 Est GFR ( Amer) > 60 10/21/17 04:20 Est GFR (Non-Af Amer) > 60 10/21/17 04:20 Random Glucose 73 mg/dL (65-105) 10/21/17 04:20 Calcium 8.3 mg/dL (8.4-10.2) L 10/21/17 04:20 Magnesium 1.8 MG/DL (1.6-2.3) 10/19/17 06:30 Iron 89 ug/dL (37-170) 10/20/17 11:26 TIBC 366 ug/dL (250-450) 10/20/17 11:26 % Saturation 24 % (20-55) 10/20/17 11:26 Ferritin 26.2 ng/Ml (6.24-137.0) 10/20/17 10:00 Total Bilirubin 1.2 mg/dl (0.2-1.3) 10/21/17 04:20 Direct Bilirubin 1.0 mg/ml (0.0-0.4) H 10/20/17 10:00 AST 97 U/L (14-36) H D 10/21/17 04:20 ALT 259 U/L (9-52) H D 10/21/17 04:20 Alkaline Phosphatase 113 U/L (38-126) 10/21/17 04:20 Troponin I 0.0180 ng/mL (0.00-0.120) 10/17/17 20:55 Total Protein 6.3 G/DL (6.3-8.2) 10/21/17 04:20 Albumin 3.1 g/dL (3.5-5.0) L 10/21/17 04:20 Globulin 3.1 gm/dL (2.2-3.9) 10/21/17 04:20 Albumin/Globulin Ratio 1.0 (1.0-2.1) 10/21/17 04:20 Vitamin B12 773 pg/mL (239-931) 10/20/17 10:00 Folate 12.6 ng/mL 10/20/17 10:00 Venous Blood Potassium 3.3 mmol/L (3.6-5.2) L 10/17/17 08:04 Urine Color Colorless (YELLOW) 10/17/17 16:15 Urine Clarity Clear (Clear) 10/17/17 16:15 Urine pH 7.0 (5.0-8.0) 10/17/17 16:15 Ur Specific [place] < 1.005 (1.003-1.030) 10/17/17 16:15 Urine Protein Negative mg/dL (NEGATIVE) 10/17/17 16:15 Urine Glucose (UA) Neg mg/dL (Normal) 10/17/17 16:15 Urine Ketones Trace mg/dL (NEGATIVE) 10/17/17 16:15 Urine Blood Negative (NEGATIVE) 10/17/17 16:15 Urine Nitrate Negative (NEGATIVE) 10/17/17 16:15 Urine Bilirubin Negative (NEGATIVE) 10/17/17 16:15 Urine Urobilinogen 0.2-1.0 mg/dL (0.2-1.0) 10/17/17 16:15 Ur Leukocyte Esterase Neg Áng[place]/uL (Negative) 10/17/17 16:15 Urine RBC (Auto) < 1 /hpf (0-3) 10/17/17 16:15 Urine Microscopic WBC 1 /hpf (0-5) 10/17/17 16:15 Ur Squamous Epith Cells 1 /hpf (0-5) 10/17/17 16:15 Urine Bacteria Rare (<OCC) 10/17/17 16:15 Urine Opiates Screen Negative (NEGATIVE) 10/17/17 16:15 Urine Methadone Screen Negative (NEGATIVE) 10/17/17 16:15 Ur Barbiturates Screen Negative (NEGATIVE) 10/17/17 16:15 Ur Phencyclidine Scrn Negative (NEGATIVE) 10/17/17 16:15 Ur Amphetamines Screen Negative (NEGATIVE) 10/17/17 16:15 U Benzodiazepines Scrn Negative (NEGATIVE) 10/17/17 16:15 U Oth Cocaine Metabols Negative (NEGATIVE) 10/17/17 16:15 U Cannabinoids Screen Negative (NEGATIVE) 10/17/17 16:15 Hepatitis A IgM Ab Negative (NEGATIVE) 10/21/17 04:20 Hep Bs Antigen Negative (NEGATIVE) 10/21/17 04:20 Hep B Core IgM Ab Negative (NEGATIVE) 10/21/17 04:20 Hepatitis C Antibody Negative (NEGATIVE) 10/21/17 04:20 Discharge Exam - Head Exam Head Exam: ATRAUMATIC, NORMAL INSPECTION, NORMOCEPHALIC Discharge Plan - Follow Up Plan Condition: FAIR Disposition: HOME/ ROUTINE Instructions: Community Acquired Pneumonia (DC) Referrals: Amanda Linares MD [Staff Provider] -
== END 2017-10-21 19:08 | disposition home or self-care (01) | DRG 584 ==
LOC: H.ER 07:07 → H.ERHOLD 10:44 → H.TEL 12:53
PROVIDERS: ADMIT Internal Medicine; ATTEND Internal Medicine
PROC: 3E0234Z Introduction of Serum, Toxoid and Vaccine into Muscle, Percutaneous Approach (ICD-10-PCS; principal; 2017-10-17)
DX: A41.9 Sepsis, unspecified organism (principal); J18.9 Pneumonia, unspecified organism; Z23 Encounter for immunization; R65.20 Severe sepsis without septic shock; K59.00 Constipation, unspecified; J45.909 Unspecified asthma, uncomplicated